=== PATIENT | male | born 1940 | race Caucasian/White ===

== ENCOUNTER 2019-03-17 12:45 | Emergency (ER) | payer MEDICARE, BC ==
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
[2019-03-17] MEDS: Acetaminophen 325 MG Tab PO ONE (13:45)
== END 2019-03-17 14:05 | disposition other institution (70) ==
LOC: LL.ED 12:45
DX: T54.2X1A Toxic effect of corrosive acids and acid-like substances, accidental (unintentional), initial encounter (principal); T26.91XA Corrosion of right eye and adnexa, part unspecified, initial encounter; I10 Essential (primary) hypertension
CPT/HCPCS: 99283; A9270-GY